=== PATIENT | female | born 1945 | race Caucasian/White ===

== ENCOUNTER 2024-04-18 13:38 | Inpatient (IN) | payer MEDICARE, OTHER ==
[~2024-04-18] VITALS: Ht 149.9 cm; Wt 74.0 kg
[2024-04-18] MEDS: ACCU-CHEK COMFORT CURVE STRIP VI SCH (00:59)
[~2024-04-18 13:38] MED LIST: NITR-87 PO; PHENAZOPYRID PO; SYNTHROID
[2024-04-18] MEDS: cloNIDine HCL 0.1 MG TAB PO ONE (15:35)
--- NOTE | 2024-04-18 15:45 | ED.PDOC ---
History of Present Illness HPI Comments A 78 YEAR OLD FEMALE PRESENTS TO THE ED WITH COMPLAINT OF MEDICATION REFILL AND HIGH BLOOD PRESSURE. PATIENT STATES SHE HAS A HISTORY OF DIABETES AND DEPRESSION AND WOULD LIKE A MEDICATION REFILL FOR HER CELEXA 10MG AND HUMULIN KWIKPEN. PATIENT'S BLOOD PRESSURE WAS ALSO NOTED TO HAVE BEEN HIGH HERE IN THE ED WHEN CHECKED, BUT THE PATIENT NOTES HER BLOOD PRESSURE IS ALWAYS THIS HIGH DESPITE TAKING HER LOSARTAN 100MG EVERYDAY. THE PATIENT ALSO NOTES THAT SHE EXPERIENCE HIS CHEST PAIN EVERY DAY, USUALLY AT NIGHT. PATIENT DENIES RECENT CHANGES, SLURRED SPEECH, ONE-SIDED WEAKNESS, FACIAL DROOP, DYSURIA, FEVER, CHILLS, SHORTNESS OF BREATH, ABDOMINAL PAIN, NAUSEA, VOMITING, HEADACHE, OR OTHER COMPLAINTS. NO OTHER SYMPTOMS OR MODIFYING FACTORS AT THIS TIME. PATIENT IS ALERT, ORIENTED X 4, AND HAS STEADY GAIT. 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 [employer]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[employer]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 [employer]ER History: 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 History Family History Family History: Reviewed,noncontributory to illness Social History Smoker: Non-Smoker Alcohol: Denies ETOH Use Drugs: Denies Drug Use Lives In: Home Constitutional: reports: others (ANXIOUS ); denies: chills, diaphoresis, f atigue, fever, malaise, sweats, weakness EENTM: denies: blurred vision, double vision, ear bleeding, ear discharge, ear drainage, ear pain, ear ringing, eye pain, eye redness, hearing loss, mouth pain, mouth swelling, nasal discharge, nose bleeding, nose congestion, nose pain, photophobia, tearing, throat pain, throat swelling, voice changes, others Respiratory: denies: cough, hemoptysis, orthopnea, SOB at rest, shortness of breath, SOB with excertion, stridor, wheezing, others Cardiovascular: reports: chest pain, others (HIGH BLOOD PRESSURE); denies: dizzy spells, diaphoresis, Dyspnea on exertion, edema, irregular heart beat, left arm pain, lightheadedness, palpitations, PND, syncope Gastrointestinal: denies: abdomen distended, abdominal pain, blood streaked bowels, constipated, diarrhea, dysphagia, difficulty swallowing, hematemesis, melena, nausea, poor appetite, poor fluid intake, rectal bleeding, rectal pain, vomiting, others Genitourinary: reports: others (DIFFICULTY URINATING); denies: abnormal vagina bleeding, burning, dyspareunia, dysuria, flank pain, frequency, hematuria, incontinence, pain, , vagina discharge, urgency Neurological: denies: dizziness, fainting, headache, left sided numbness, left sided weakness, numbness, paresthesia, pre-existing deficit, right sided numbness, right sided weakness, seizure, speech problems, tingling, tremors, weakness, others Musculoskeletal: denies: back pain, gout, joint pain, joint swelling, muscle pain, muscle stiffness, neck pain, others Integumetry: denies: bruises, change in color, change in hair/nails, dryness, laceration, lesions, lumps, rash, wounds, others Allergic/Immunocompromised: denies: Difficulty Healing, Frequent Infections, Hives, Itching, others Hematologic/Lymphatic: denies: anemia, blood clots, easy bleeding, easy bruising, swollen glands, others Endocrine: denies: excessive hunger, excessive sweating, excessive thirst, excessive urination, flushing, intolerance to cold, intolerance to heat, unexplained weight gain, unexplained weight loss, others Psychiatric: denies: anxiety, bipolar disorder, depression, hopeless, panic disorder, schizophrenia, sleepless, suicidal, others All Other Systems: Reviewed and Negative Physical Exam General Appearance: Mild Distress, Other (ANXIOUS ) HEENT: Normal ENT Inspection, PERRL/EOMI, Pharynx Normal, TMs Normal Neck: Full Range of Motion, Non-Tender, Normal, Normal Inspection Respiratory: Chest Non-Tender, Lungs Clear, No Accessory Muscle Use, No Respiratory Distress, Normal Breath Sounds Cardiovascular: No Edema, No JVD, No Murmur, No Gallop, Normal Peripheral Pulses, Regular Rate/Rhythm Breast Exam: Deferred Gastrointestinal: No Organomegaly, Non Tender, No Pulsatile Mass, Normal Bowel Sounds, Soft Genitalia: Deferred Pelvic: Deferred Rectal: Deferred Extremities: No calf tenderness, Normal capillary refill, Normal inspection, Normal range of motion, Non-tender, No pedal edema Musculoskeletal : Apperance: Normal Neurologic: Alert, photograph inspector II-XII nml as Tested, No Motor Deficits, Normal Affect, Normal Mood, No Sensory Deficits Cerebellar Function: Normal Reflexes: Normal Skin: Dry, Normal Color, Warm Peripheral Pulses: 2+ carotid (R), 2+ carotid (L) Lymphatic: No Adenopathy Was a procedure done? Was a procedure done?: No EKG EKG : Pulse Rate (adult): 43 [place]: Normal Block: None Hypertrophy: None ST: Normal Comments BRADYCARDIA Differential Dx Considerations may include: MEDICATION REFILL, HYPERTENSION, UNCONTROLLED HYPERTENSION, HYPERTENSIVE URGENCY, UTI, ELECTROLYTE IMBALANCE, HYPOTHYROIDISM, NONCARDIAC CHEST PAIN, MN, BRADYCARDIA, ANXIETY REACTION X-Ray, Labs, Meds, VS Vital Signs Date Time Temp Pulse Resp B/P (MAP) Pulse Ox O2 Delivery O2 Flow Rate FiO2 04/18/24 17:39 43 04/18/24 17:24 43 04/18/24 16:37 131/54 04/18/24 16:37 131/54 (79) 04/18/24 15:35 210/71 04/18/24 15:20 98.2 65 18 186/65 (105) 96 98.2 04/18/24 15:20 65 18 96 Room Air 04/18/24 14:20 98.2 65 18 186/65 (105) 96 Lab Test 04/18/24 17:13 04/18/24 15:24 Range/Units Troponin I High Sensitivity 5 5 </=34 ng/L White Blood Count 7.9 4.4-10.8 10^3/uL Red Blood Count 4.53 4.0-5.20 10^6/uL Hemoglobin 13.5 12.2-16.2 g/dL Hematocrit 40.2 36.0-46.0 % Mean Corpuscular Volume 88.7 80.0-100.0 fL Mean Corpuscular Hemoglobin 29.8 28.0-32.0 pg Mean Corpuscular Hemoglobin Concent 33.6 32.0-36.0 g/dL Red Cell Distribution Width 13.6 11.8-14.3 % Platelet Count 200 140-450 10^3/uL Mean Platelet Volume 10.0 6.9-10.8 fL Neutrophils (%) (Auto) 62.4 37.0-80.0 % Lymphocytes (%) (Auto) 28.1 10.0-50.0 % Monocytes (%) (Auto) 6.4 0.0-12.0 % Eosinophils (%) (Auto) 2.1 0.0-7.0 % Basophils (%) (Auto) 1.0 0.0-2.0 % Neutrophils # (Auto) 5.0 1.6-8.6 10 ^3/uL Lymphocytes # (Auto) 2.2 0.4-5.4 10 ^3/uL Monocytes # (Auto) 0.5 0-1.3 10 ^3/uL Eosinophils # (Auto) 0.2 0-0.8 10 ^3/uL Basophils # (Auto) 0.1 0-0.2 10 ^3/uL Nucleated Red Blood Cells 0.2 % Urine Color Yellow Yellow Urine Clarity Turbid H Clear Urine pH 5.0 5.0-9.0 Urine Specific [place] 1.020 1.001-1.035 Urine Protein 1+ H Negative Urine Ketones Negative Negative Urine Blood 1+ H Negative /uL Urine Nitrite Negative Negative Urine Bilirubin Negative Negative Urine Urobilinogen Normal Negative mg/dL Urine Leukocyte Esterase Trace Negative /uL Urine RBC 9 0 - 4 /hpf Urine Microscopic WBC 40 H 0-5 /HPF Urine Squamous Epithelial Cells Few <5 /hpf Urine Bacteria Mod H None Seen /hpf Urine Hyaline Casts Few 0 - 2 /lpf Urine Mucus Few None Seen Urine Glucose 4+ H Normal mg/dL Sodium Level 136 136-145 mmol/L Potassium Level 4.1 3.5-5.1 mmol/L Chloride Level 106 98-107 mmol/L Carbon Dioxide Level 22 20-31 mmol/L Anion Gap 8 5-15 Blood Urea Nitrogen 16 9-23 mg/dL Creatinine 1.09 H 0.550-1.02 mg/dL Glomerular Filtration Rate Calc 52 >90 mL/min BUN/Creatinine Ratio 14.7 10.0-20.0 Serum Glucose 292 H 74-106 mg/dL Calcium Level 10.0 8.7-10.4 mg/dL Thyroid Stimulating Hormone (TSH) 5.93 H 0.55-4.78 uIU/mL Current Medications Medications (Trade) Dose Ordered Sig/Kimberly Route Start Time Stop Time Status Last Admin Clonidine HCl (Catapres Tablet) 0.2 mg ONCE ONCE PO 04/18/24 15:30 04/18/24 15:31 DC 04/18/24 15:35 Aspirin 162 mg ONCE ONCE PO 04/18/24 17:15 04/18/24 17:16 DC 04/18/24 17:41 Sodium Chloride 1,000 ml @ 150 mls/hr Q6H40M ONCE IV 04/18/24 17:15 04/18/24 23:54 04/18/24 17:39 X-Ray, Labs, Meds, VS Comment EXTERNAL MEDICAL RECORDS REVIEWED: [NONE] INDEPENDENT HISTORIANS: [NONE] SOCIAL DETERMINANTS OF HEALTH: [NONE] LABS ORDERED: CBC, BMP, TSH, TROPONIN X2, UA REVIEWED AND INTERPRETED RESULTS: UGLU 4+, GLUCOSE 292, TSH 5.93, LEUKO TRACE, WBC 40, BACT MODERATE IMAGING ORDERED: XR CHEST TREATMENTS ORDERED: CLONIDINE 0.2 MG P.O. NS 1 L IV, ASPIRIN 162 MG P.O. PA MARIE DECLINED PAIN MEDICINE AT THIS TIME. ALSO, PT DECLINED CT-HEAD TEST AND STATES SHE HAD CT-HEAD LAST MONTH IN [facility]. . PATIENT REPORTED FEELING CHEST PAIN HERE IN THE ED WHEN HER CAME TO VISIT HER. PROCEDURES PERFORMED: NONE CRITICAL CARE TIME: YES I HAVE DISCUSSED THE PATIENT WITH THE ATTENDING PHYSICIAN AND HE AGREES WITH THE PATIENT'S PLAN OF CARE. UPON MY PHYSICAL EXAMINATION, THE PATIENT WAS WELL IN APPEARANCE, AND DID NOT HAVE ANY SIGNS OF RESPIRATORY DISTRESS AT THIS TIME. MY DIFFERENTIAL DIAGNOSIS INCLUDES, NONCARDIAC CHEST PAIN, MN, ANXIETY REACTION, HYPERVENTILATION SYNDROM E, HYPOTHYROIDISM, DEHYDRATION, ELECTROLYTE IMBALANCE, BRADYCARDIA, UNCONTROLLED HYPERTENSION, HYPERTENSIVE URGENCY, ACCELERATED HYPERTENSION, UTI, ACUTE CYSTITIS. PATIENT REPORTED FEELING CHEST PAIN HERE IN THE ED WHEN HER CAME TO VISIT HER. DUE TO THE PATIENT'S EKG CONSISTENTLY SHOWING A BRADYCARDIA, THE PATIENT'S CONSISTENT CHEST PAIN, AND THE PATIENT HAVING UNCONTROLLED HYPERTENSION I HAVE DETERMINED THE PATIENT SHOULD BE ADMITTED FOR FURTHER TREATMENT AND EVALUATION. THE ON-CALL ADMITTING PHYSICIAN WILL BE CONTACTED FOR ADMISSION OF THIS PATIENT. Images Reviewed?: Images reviewed and evaluated by me Time of 1ST Reevaluation: 18:00 Reevaluation 1ST: Unchanged Patient Education/Counseling: Diagnosis, Treatment Family Education/Counseling: Diagnosis, Treatment Departure 1 Departure Time of Disposition: 18:04 Impression: Primary Impression: Accelerated hypertension Additional Impressions: Acute chest pain Bradycardia Hypothyroidism Qualified Codes: E03.9 - Hypothyroidism, unspecified Uncontrolled diabetes mellitus Qualified Codes: E11.65 - Type 2 diabetes mellitus with hyperglycemia Disposition: 09 ADMITTED INPATIENT Admit to: Tele Condition: Serious Critical Care Note Critical Care Time?: Yes (35 min-critical care time only) Critical care comment: Critcal care was time spent personally by me on the following activities: Obtaining history of the patient. Development of treatment plan with patient. Evaluation of patient's response to treatment. Examination of the patient x 3. Interpretation of cardiac output measurements. Ordering interventions. Ordering and review of laboratory and radiology studies. Re-evaluation of patient's conditions 3 times. Review of old charts. Documentation of the patient had a high probability of imminent, life- threatening deterioration. Critical care time excludes time spent performing billable procedures. Stability Stability form required: Yes Unstable for transfer: Requires medication, ED Physician Assesment, Possible rapid decline Heart Score Heart Score: Heart Score Response (Comments) Value History Moderate Suspicious 1 EKG Normal 0 Age >65 2 Risk Factors >3 or Hx ASHD 2 Troponin Normal limit 0 Total 5 I personally scribed for STEFAN PALOMARES ([email or web address]) on 04/18/24 at 15:45. Elect ronically submitted by Maynor Mckeon ([employer]). I personally scribed for STEFAN PALOMARES ([email or web address]) on 04/18/24 at 16:45. Electro nically submitted by Maynor Mckeon ([employer]). I personally scribed for STEFAN PALOMARES ([email or web address]) on 04/18/24 at 17:39. Electroni jasmyn submitted by Maynor Mckeon ([employer]). I personally scribed for STEAFN PALOMARES ([email or web address]) on 04/18/24 at 18:06. Electronically submitted by Maynor Mckeon ([employer]). STEFAN PALOMARES Apr 18, 2024 15:45
[2024-04-18 15:58] LABS: Basophils # (auto) 0.1 10 ^3/uL (0-0.2); Eosinophils # (auto) 0.2 10 ^3/uL (0-0.8); Eosinophils % (auto) 2.1 % (0.0-7.0); Hematocrit 40.2 % (36.0-46.0); Hemoglobin 13.5 g/dL (12.2-16.2); Lymphocytes # (auto) 2.2 10 ^3/uL (0.4-5.4); Lymphocytes % (auto) 28.1 % (10.0-50.0); Mean Corpuscular Hemoglobin 29.8 pg (28.0-32.0); Mean Corpuscular Hgb Conc. 33.6 g/dL (32.0-36.0); Mean Corpuscular Volume 88.7 fL (80.0-100.0); Monocytes # (auto) 0.5 10 ^3/uL (0-1.3); Monocytes % (auto) 6.4 % (0.0-12.0); Neutrophils % (auto) 62.4 % (37.0-80.0); Nucleated Red Blood Cells % 0.2 %; Platelet Count (auto) 200 10^3/uL (140-450); Red Blood Cells 4.53 10^6/uL (4.0-5.20); Red Cell Distribution Width 13.6 % (11.8-14.3); White Blood Cell 7.9 10^3/uL (4.4-10.8)
[2024-04-18 16:04] LABS: Chloride 106 mmol/L (98-107); Potassium 4.1 mmol/L (3.5-5.1); Sodium 136 mmol/L (136-145)
[2024-04-18 16:05] LABS: Anion Gap 8 (5-15); Carbon Dioxide 22 mmol/L (20-31)
[2024-04-18 16:07] LABS: Urine Bacteria MOD /hpf (None Seen); Urine Hyaline Cast FEW /lpf (0 - 2); Urine Mucus FEW (None Seen); Urine Squamous Epithelial Cell FEW /hpf (<5); Urine WBC 40 /HPF (0-5)
[2024-04-18 16:10] LABS: BUN/Creatinine Ratio 14.7 (10.0-20.0); Blood Urea Nitrogen 16 mg/dL (9-23)
[2024-04-18 16:13] LABS: Glucose 292 mg/dL (74-106)
[2024-04-18 16:19] LABS: Urine Clarity TURBID (Clear); Urine Color Yellow (Yellow)
[2024-04-18 16:23] LABS: Urine Protein, UAD 1+ (Negative)
[2024-04-18 16:24] LABS: Urine Blood 1+ /uL (Negative); Urine Urobilinogen Normal (Negative)
[2024-04-18] MEDS ORDERED: CLON0.1T PO (16:59)
[2024-04-18] MEDS ORDERED: NITR-87 PO (16:59)
[2024-04-18] MEDS ORDERED: INSU1INJ4 SC (16:59)
[2024-04-18] MEDS: SODIUM CHLORIDE 0.9% 1,000 ML IV ONE ×3 (17:15→19:05)
[2024-04-18] MEDS: ASPirin 81 mg TAB PO ONE (17:41)
--- NOTE | 2024-04-18 18:57 | DVH ---
Procedure: XY CHEST XRAY 1 VIEW 04/18/2024 05:13 PM Indication: CHEST PAIN Comparison: None TECHNIQUE: XY CHEST XRAY 1 VIEW FINDINGS: Medical devices: None. Cardiomediastinal: The heart is normal in size. Pulmonary vasculature is within normal limits. Athero sclerotic calcification of the aortic arch noted. Lungs: No focal pulmonary opacity is seen. The costophrenic angles are clear. No pneumothorax. Bones/soft tissues: No acute abnormality is noted. IMPRESSION: 1. No acute cardiopulmonary disease.
[2024-04-18] MEDS ORDERED: ACETAMINOPHEN 325 MG TAB PO PRN (19:45)
[2024-04-18] MEDS ORDERED: DEXTROSE (50%) 50ML SYRG IV PRN (19:45)
[2024-04-18] MEDS: SODIUM CHLORIDE 0.9% 1,000 ML IV SCH (19:45)
[2024-04-18] MEDS ORDERED: ONDANSETRON HCL 4 MG/2 ML VIAL IV PRN (19:45)
[2024-04-18] MEDS ORDERED: DOCUSATE SOD 100 MG CAP PO PRN (19:45)
[2024-04-18] MEDS: InsuLIN REG 1unit/0.01ml Soln (100units/ml) SC SCH (20:00)
--- NOTE | 2024-04-18 20:34 | DVHHP2 ---
History of Present Illness Reason for Visit: Hypertensive urgency History of Present Illness The patient is a 78-year-old female with past medical history of DM, depression, anxiety, thyroid disease, UTIs, and hypertension who presented to [facility] ED with complaint of elevated blood pressure. Patient reports she ran out of blood pressure medication, will need medication refills. Patient also reports chest pain every day, usually at night. Patient was seen and evaluated in the ED, laboratory data shows WBC 7.9, platelets 200, sodium 136, potassium 4.1, BUN 16, creatinine 1.09, GFR 52, glucose 292, troponin 5, TSH 5.93, blood pressure 210/71 trending down to 128/60, heart rate 46, temperature 98.2 F, O2 saturation 96% on room air. Patient was given clonidine 0.2 mg by mouth x1, given aspirin 162 mg p.o. x1, please see medication orders section in the computer. On my assessment, patient denied chest pain at this moment, no headach e, no dizziness, no slurred speech, no diaphoresis, no nausea, no vomiting, no fever, no chills. Patient was admitted for further evaluation and medical management. Past Medical History Anxiety, Depression, DM, HTN, Thyroid, UTI'S Past Surgical History Bilateral hip surgery Family History Reviewed, noncontributory to the management of this case. Past Social History The patient lives at home, denies smoking, alcohol or illicit drugs abuse. Review of Systems Constitutional: Yes: Weakness; No: Fever, Chills, Sweats, Malaise, Other Eyes: No: Pain, Vision change, Conjunctivae inflammation, Eyelid inflammation, Other, Redness ENT: No: Ear pain, Ear discharge, Nose pain, Nose discharge, Nose congestion, Mouth pain, Mouth swelling, Throat pain, Throat swelling, Other Respiratory: No: Cough, Dry, Shortness of breath, SOB with excertion, Wheezing, Hemoptysis, Pleuritic Pain, Sputum, Wheezing, Other Cardiovascular: Chest Pain; No: Palpitations, Orthopnea, Paroxysmal Noc. Dyspnea, Edema, Lt Headedness, Other Gastrointestinal: No: Nausea, Vomiting, Abdominal Pain, Diarrhea, Constipation, Melena, Hematochezia, Other Genitourinary: No Dysuria, No Frequency, No Incontinence, No Hematuria, No Retention; Other (Urinary hesitancy) Musculoskeletal: No: other, neck pain, shoulder pain, arm pain, back pain, hand pain, leg pain, foot pain Skin: No: Rash, Lesions, Jaundice, Bruising, Other Neurological: No: Weakness, Numbness, Incoordination, Change in speech, Confusion, Seizures, Other Allergies: Coded Allergies: Ciprofloxacin (Verified Allergy, Severe, 11/07/10) Medications Current Medications Medications Dose Ordered Sig/Kimberly Route Start Time Stop Time Status Last Admin Dose Admin Aspirin 81 mg DAILY PO 04/19/24 10:00 Atorvastatin Calcium 10 mg HS PO 04/18/24 22:00 Levothyroxine Sodium 88 mcg QAM@0600 PO 04/19/24 06:00 Losartan Potassium 50 mg DAILY PO 04/19/24 10:00 Hydralazine HCl 10 mg Q6HP PRN IV 04/18/24 19:45 Diagnostic Test (Pha) 1 strip IQ4HR 04/18/24 20:00 Insulin Human Regular IQ4HR SC 04/18/24 20:00 Dextrose 50 ml UD PRN IV 04/18/24 19:45 Sodium Chloride 1,000 ml @ 60 mls/hr [id number] IV 04/18/24 19:45 Acetaminophen/ Hydrocodone Bitart 1 tab Q4HP PRN PO 04/18/24 19:45 Ondansetron HCl 4 mg Q4HP PRN IV 04/18/24 19:45 Docusate Sodium 100 mg BIDPRN PRN PO 04/18/24 19:45 Acetaminophen 650 mg Q6HP PRN PO 04/18/24 19:45 Nitroglycerin 0.4 mg Q5MINP PRN SL 04/18/24 20:45 UNV Morphine Sulfate 2 mg Q30M PRN IV 04/18/24 20:45 UNV Exam Vital Signs Vital Signs Date Time Temp Pulse Resp B/P (MAP) Pulse Ox O2 Delivery O2 Flow Rate FiO2 04/18/24 18:34 46 16 128/60 (82) 98 04/18/24 15:20 98.2 98.2 04/18/24 15:20 Room Air General Appearance: Alert, Oriented X3, Cooperative, No acute distress HEENT: Atraumatic, PERRLA, EOMI, Mucous membr. moist/pink Respiratory: Clear to auscultation, Normal air movement Cardiovascular: Regular rate, Normal S1, Normal S2, No murmurs Abdominal: Normal bowel sounds, Soft, No tenderness, No hepatospenomegaly, No masses Extremities: No clubbing, No cyanosis, No edema, Normal pulses, No tenderness/swelling Skin: No rashes, No breakdown, No significant lesion Neuro: Normal speech, Normal tone, Sensation intact, Cranial nerves 3-12 NL, Reflexes 2+, Other (Generalized weakness) Psych/Mental Status: Mental status NL, Mood NL Labs/Xrays Labs Test 04/18/24 17:13 04/18/24 15:24 Range/Units Troponin I High Sensitivity 5 </=34 ng/L White Blood Count 7.9 4.4-10.8 10^3/uL Red Blood Count 4.53 4.0-5.20 10^6/uL Hemoglobin 13.5 12.2-16.2 g/dL Hematocrit 40.2 36.0-46.0 % Mean Corpuscular Volume 88.7 80.0-100.0 fL Mean Corpuscular Hemoglobin 29.8 28.0-32.0 pg Mean Corpuscular Hemoglobin Concent 33.6 32.0-36.0 g/dL Red Cell Distribution Width 13.6 11.8-14.3 % Platelet Count 200 140-450 10^3/uL Mean Platelet Volume 10.0 6.9-10.8 fL Neutrophils (%) (Auto) 62.4 37.0-80.0 % Lymphocytes (%) (Auto) 28.1 10.0-50.0 % Monocytes (%) (Auto) 6.4 0.0-12.0 % Eosinophils (%) (Auto) 2.1 0.0-7.0 % Basophils (%) (Auto) 1.0 0.0-2.0 % Neutrophils # (Auto) 5.0 1.6-8.6 10 ^3/uL Lymphocytes # (Auto) 2.2 0.4-5.4 10 ^3/uL Monocytes # (Auto) 0.5 0-1.3 10 ^3/uL Eosinophils # (Auto) 0.2 0-0.8 10 ^3/uL Basophils # (Auto) 0.1 0-0.2 10 ^3/uL Nucleated Red Blood Cells 0.2 % Urine Color Yellow Yellow Urine Clarity Turbid H Clear Urine pH 5.0 5.0-9.0 Urine Specific [place] 1.020 1.001-1.035 Urine Protein 1+ H Negative Urine Ketones Negative Negative Urine Blood 1+ H Negative /uL Urine Nitrite Negative Negative Urine Bilirubin Negative Negative Urine Urobilinogen Normal Negative mg/dL Urine Leukocyte Esterase Trace Negative /uL Urine RBC 9 0 - 4 /hpf Urine Microscopic WBC 40 H 0-5 /HPF Urine Squamous Epithelial Cells Few <5 /hpf Urine Bacteria Mod H None Seen /hpf Urine Hyaline Casts Few 0 - 2 /lpf Urine Mucus Few None Seen Urine Glucose 4+ H Normal mg/dL Sodium Level 136 136-145 mmol/L Potassium Level 4.1 3.5-5.1 mmol/L Chloride Level 106 98-107 mmol/L Carbon Dioxide Level 22 20-31 mmol/L Anion Gap 8 5-15 Blood Urea Nitrogen 16 9-23 mg/dL Creatinine 1.09 H 0.550-1.02 mg/dL Glomerular Filtration Rate Calc 52 >90 mL/min BUN/Creatinine Ratio 14.7 10.0-20.0 Serum Glucose 292 H 74-106 mg/dL Calcium Level 10.0 8.7-10.4 mg/dL Thyroid Stimulating Hormone (TSH) 5.93 H 0.55-4.78 uIU/mL PATIENT: BRAEDEN MARIA MACCT: [id number] UNIT: [id number] : 1945 LOC: ER ROOM / BED: / AGE / SEX: 78 / F ADM STATUS: REG ER SERVICE 1710 ORDERING PHYSICIAN: STEFAN PALOMARES PROCEDURE(s): CXR1 - CHEST XRAY 1 VIEW REASON: CHEST PAIN ORDER NUMBER(s): [id number], ACCESSION NUMBER(s): [id number] Procedure: XY CHEST XRAY 1 VIEW 04/18/2024 05:13 PM Indication: CHEST PAIN Comparison: None TECHNIQUE: XY CHEST XRAY 1 VIEW FINDINGS: Medical devices: None. Cardiomediastinal: The heart is normal in size. Pulmonary vasculature is within normal limits. Atherosclerotic calcification of the aortic arch noted. Lungs: No focal pulmonary opacity is seen. The costophrenic angles are clear. No pneumothorax. Bones/soft tissues: No acute abnormality is noted. IMPRESSION: 1. No acute cardiopulmonary disease. Assessment/Plan Assessment/Plan Accelerated hypertension Acute chest pain Bradycardia Hypothyroidism Hypothyroidism, unspecified Uncontrolled diabetes mellitus Type 2 diabetes mellitus with hyperglycemia Plan 1. Admit to telemetry unit 2. Breathing treatment 3. Pain control management 4. Management of fluids and electrolytes 5. Consultation for hospitalist 6. Diagnostic tests chest x-ray 7. DVT prophylaxis-on aspirin 8. Repeat labs CBC, CMP in a.m. 9. Continue with current medical management 10. Treatment plan discussed with patient and RN. Patient verbalized understanding. Plan discussed with: Patient, Other (RN) My Orders Orders - ANA MARIA TOUSSAINT DNP Procedure Category Date Status Time Aspirin Tablet PHA 04/19/24 In Process 10:00 Atorvastatin (Lipitor) PHA 04/18/24 In Process 22:00 Levothyroxine Tablet PHA 04/19/24 In Process (Synthroid Tablet) 06:00 Losartan Tablet PHA 04/19/24 In Process (Cozaar Tablet) 10:00 Hydralazine Injection PHA 04/18/24 In Process (Apresoline Inject 19:45 Consistent DIET 04/19/24 Transmitted Carb(Ccho)Diabetes Breakfast Glucose Blood PHA 04/18/24 In Process (Accu-Chek Comfort 20:00 Insulin R (Human) PHA 04/18/24 In Process (Insulin R) 20:00 Dextrose 50% Syringe PHA 04/18/24 In Process 19:45 Allergies KRISHAN 04/18/24 In Process 19:36 Code Status CODE 04/18/24 Transmitted 19:36 Sodium Chloride 0.9% PHA 04/18/24 In Process 19:45 Oxygen Per Hour RT 04/18/24 Transmitted 19:36 Hydrocodone-Acet PHA 04/18/24 In Process 5/325mg Tab ([place] 19:45 Ondansetron Hcl PHA 04/18/24 In Process (Zofran) 19:45 Docusate Sodium PHA 04/18/24 In Process Capsule (Colace 19:45 Complete Blood Count LAB 04/19/24 Verified 04:00 Comprehensive LAB 04/19/24 Verified Metabolic Panel 04:00 Condition: Serious KRISHAN 04/18/24 In Process 19:36 Acetaminophen Tablet PHA 04/18/24 In Process (Tylenol Tablet) 19:45 Bedrest With Bathroom KRISHAN 04/18/24 In Process Privileg 19:36 Sequential KRISHAN 04/18/24 In Process Compression Device Admit ADMIT 04/18/24 Transmitted 20:32 Nitroglycerin PHA 04/18/24 Transmitted Sublingual (Ntrostat 20:45 Morphine Sulfate [facility] 04/18/24 Transmitted Injection 20:45 Notify Md Of Changes [facility] 04/18/24 Transmitted From Base 20:32 Curator Of Education For [facility] 04/18/24 Transmitted 24 Hours 20:32 Emergency Dysrhythmia [facility] 04/18/24 Transmitted Protocol 20:32 Rhythm Strips Once [facility] 04/18/24 Transmitted Every Shift 20:32 Oxygen By Nasal 04/18/24 Transmitted Cannula 20:32 Problem List: (1) Accelerated hypertension (2) Acute chest pain (3) Bradycardia (4) Hypothyroidism, unspecified (5) Uncontrolled diabetes mellitus (6) Hypothyroidism (7) Type 2 diabetes mellitus with hyperglycemia Date of Service: Apr 18, 2024 Billing Provider: ANA MARIA TOUSSAINT DNP Common Visit Codes: 47515-[id number] INP/OBS CARE (HIGH) ANA MARIA TOUSSAINT DNP Apr 18, 2024 20:34
[2024-04-18] MEDS ORDERED: MORPHINE SULFATE INJ 2 MG/ml SYRG IV PRN (20:45)
[2024-04-18] MEDS ORDERED: NITROGLYCERIN 0.4 MG SL TAB SL PRN (20:45)
[2024-04-18] MEDS: ATORVASTATIN 20 MG TAB PO SCH (22:00)
[2024-04-19] VITALS (8 sets, daily range): BP systolic 142–205; BP diastolic 55–70; PULSE 43–69; RESP 16–19; TEMP 97.6–98.8; O2SAT 93–100
[2024-04-19] MEDS ORDERED: LOSA-535 PO (00:12)
[2024-04-19] MEDS ORDERED: CITA10TA8 PO (00:12)
[2024-04-19] MEDS ORDERED: MECL12.586 PO (00:12)
[2024-04-19] MEDS ORDERED: LEVO-177 PO (00:12)
[2024-04-19] MEDS: hydrALAZINE HCL 20 MG/ML VL IV PRN (03:00)
[2024-04-19] MEDS: LEVOTHYROXINE SODIUM 88 MCG TAB PO SCH (04:58)
[2024-04-19 07:48] LABS: Basophils # (auto) 0.1 10 ^3/uL (0-0.2); Basophils % (auto) 0.9 % (0.0-2.0); Eosinophils # (auto) 0.2 10 ^3/uL (0-0.8); Eosinophils % (auto) 2.2 % (0.0-7.0); Hematocrit 37.1 % (36.0-46.0); Hemoglobin 12.4 g/dL (12.2-16.2); Lymphocytes # (auto) 2.5 10 ^3/uL (0.4-5.4); Lymphocytes % (auto) 31.5 % (10.0-50.0); Mean Corpuscular Hemoglobin 29.9 pg (28.0-32.0); Mean Corpuscular Hgb Conc. 33.4 g/dL (32.0-36.0); Mean Corpuscular Volume 89.7 fL (80.0-100.0); Monocytes # (auto) 0.5 10 ^3/uL (0-1.3); Monocytes % (auto) 6.5 % (0.0-12.0); Neutrophils # (auto) 4.7 10 ^3/uL (1.6-8.6); Neutrophils % (auto) 58.9 % (37.0-80.0); Platelet Count (auto) 166 10^3/uL (140-450); Red Blood Cells 4.14 10^6/uL (4.0-5.20)
[2024-04-19 08:09] LABS: Alanine Aminotransferase 10 U/L (7-40); Albumin 3.8 g/dL (3.2-4.8); Alkaline Phosphatase 94 U/L (46-116); Anion Gap 9 (5-15); BUN/Creatinine Ratio 17.1 (10.0-20.0); Blood Urea Nitrogen 14 mg/dL (9-23); Calcium 9.4 mg/dL (8.7-10.4); Carbon Dioxide 22 mmol/L (20-31); Sodium 140 mmol/L (136-145)
[2024-04-19 08:10] LABS: Bilirubin, Total 0.5 mg/dL (0.2-1.0); Total Protein 6.3 g/dL (5.7-8.2)
[2024-04-19 08:22] LABS: Chloride 109 mmol/L (98-107); Potassium 3.5 mmol/L (3.5-5.1)
[2024-04-19 08:23] LABS: Aspartate Aminotransferase 12 U/L (13-40); Glucose 135 mg/dL (74-106)
[2024-04-19] MEDS: LOSARTAN POTASSIUM 50 MG TAB PO SCH (09:28)
[2024-04-19] MEDS: ASPirin 81 mg TAB PO SCH (09:28)
[2024-04-19 09:46] LABS: Magnesium 1.6 mg/dL (1.6-2.6)
[2024-04-19] MEDS ORDERED: hydrALAZINE HCL 10 MG TAB PO PRN (11:00)
[2024-04-19] MEDS: cefTRIAXone 1GM/50ML D5W 50 ML IV SCH (12:11)
[2024-04-19] MEDS: CALCIUM CARB 500 MG CHEW TAB PO ONE (12:12)
[2024-04-19] MEDS: PANTOPRAZOLE 40 MG/10 ML VIAL INJ IV ONE (12:14)
[2024-04-19] MEDS ORDERED: hydrALAZINE HCL 25 MG TAB PO PRN (12:15)
[2024-04-19] MEDS: LOSARTAN POTASSIUM 50 MG TAB PO ONE (12:54)
[2024-04-19] MEDS: NIFEdipine ER 30 MG TAB PO ONE ×2 (12:54→18:07)
--- NOTE | 2024-04-19 13:05 | DVHPN2 ---
Subjective medication refill , high blood pressure. also been having chest pain at night upper gastric like a burning sensation Reviewed: Care Plan, H&P, Labs, Medications, Previous Orders, Radiology Changes from previous H/P or p: No Changes Neurological: Other (dizziness ) Eyes: No Pain, No Vision change, No Conjunctivae inflammation, No Eyelid inflammation, No Other, No Redness ENT: No Ear pain, No Ear discharge, No Nose pain, No Nose discharge, No Nose congestion, No Mouth pain, No Mouth swelling, No Throat pain, No Throat swelling, No Other Cardiovascular: Chest Pain; No Palpitations, No Orthopnea, No Paroxysmal Noc. Dyspnea, No Edema, No Lt Headedness, No Other Respiratory: No Cough, No Dry, No Shortness of breath, No SOB with excertion, No Wheezing, No Hemoptysis, No Pleuritic Pain, No Sputum, No Other Gastrointestinal: No Nausea, No Vomiting, No Abdominal Pain, No Diarrhea, No Constipation, No Melena, No Hematochezia; Other (flank pain ) Genitourinary: No Dysuria, No Frequency; Incontinence; No Hematuria, No Retention; Other (Urinary hesitancy) Musculoskeletal: No other, No neck pain, No shoulder pain, No arm pain, No back pain, No hand pain, No leg pain, No foot pain Skin: No Rash, No Lesions, No Jaundice, No Bruising, No Other Objective Vitals Vital Signs Date Time Temp Pulse Resp B/P (MAP) Pulse Ox O2 Delivery O2 Flow Rate FiO2 04/19/24 10:25 201/69 04/19/24 08:33 98.8 59 18 97 98.8 04/18/24 23:31 Room Air* 0 21 Intake/Output Intake and Output 04/19/24 07:00 Intake Total 0 ml Balance 0 ml Intake Oral 0 ml # Voids 2 Exam high blood pressure also having dizziness and chest pain at night General Appearance: Alert, Oriented X3, Cooperative, No acute distress HEENT: PERRLA Lungs: Clear to auscultation Cardiovascular: Regular rate, Normal S1, Normal S2, No murmurs Abdomen: Normal bowel sounds Genitourinary: No Apparent Abnormalities Extremities: No clubbing, No cyanosis, No edema, Normal pulses, No tenderness/swelling Neuro: Normal gait, Normal speech, Strength at 5/5 X4 ext, Normal tone, S ensation intact, Cranial nerves 3-12 NL Skin: Dry, Intact Psych/Mental Status: Mental status NL Medications Current Medications Medications Dose Ordered Sig/Kimberly Route Start Time Stop Time Status Last Admin Dose Admin Aspirin 81 mg DAILY PO 04/19/24 10:00 04/19/24 09:28 81 MG Atorvastatin Calcium 10 mg HS PO 04/18/24 22:00 Levothyroxine Sodium 88 mcg QAM@0600 PO 04/19/24 06:00 04/19/24 04:58 88 MCG Diagnostic Test (Pha) 1 strip IQ4HR 04/18/24 20:00 04/19/24 12:17 1 STRIP Insulin Human Regular IQ4HR SC 04/18/24 20:00 04/19/24 12:16 3 UNITS Dextrose 50 ml UD PRN IV 04/18/24 19:45 Sodium Chloride 1,000 ml @ 60 mls/hr [id number] IV 04/18/24 19:45 04/18/24 19:45 60 MLS/HR Acetaminophen/ Hydrocodone Bitart 1 tab Q4HP PRN PO 04/18/24 19:45 Ondansetron HCl 4 mg Q4HP PRN IV 04/18/24 19:45 Docusate Sodium 100 mg BIDPRN PRN PO 04/18/24 19:45 Acetaminophen 650 mg Q6HP PRN PO 04/18/24 19:45 Nitroglycerin 0.4 mg Q5MINP PRN SL 04/18/24 20:45 Morphine Sulfate 2 mg Q30M PRN IV 04/18/24 20:45 Losartan Potassium 100 mg DAILY PO 04/20/24 10:00 Pantoprazole Sodium 40 mg DAILY IV 04/20/24 10:00 Calcium Carbonate 500 mg BID PO 04/19/24 22:00 Hydralazine HCl 10 mg Q6HP PRN PO 04/19/24 11:00 Ceftriaxone Sodium 50 ml @ 100 mls/hr DAILY@09 IV 04/19/24 11:00 04/19/24 12:11 100 MLS/HR Hydralazine HCl 50 mg Q8HR PRN PO 04/19/24 12:15 UNV Nifedipine 30 mg DAILY PO 04/20/24 10:00 UNV Laboratory Results Laboratory Tests 04/19/24 06:46 Chemistry Test 04/18/24 15:24 04/19/24 06:46 Calcium Level 10.0 mg/dL (8.7-10.4) 9.4 mg/dL (8.7-10.4) Albumin 3.8 g/dL (3.2-4.8) Magnesium Level 1.6 mg/dL (1.6-2.6) Phosphorus Level 3.0 mg/dL (2.4-5.1) Total Protein 6.3 g/dL (5.7-8.2) Lipid panel Test 04/19/24 06:46 Cholesterol Level 202 mg/dL (< 200) H HDL Cholesterol 42 mg/dL (40-59) Triglycerides Level 175 mg/dL (< 150) H LFT Test 04/19/24 06:46 Alanine Aminotransferase (ALT) 10 U/L (7-40) Alkaline Phosphatase 94 U/L (46-116) Aspartate Amino Transferase (AST) 12 U/L (13-40) L Total Bilirubin 0.5 mg/dL (0.2-1.0) HgA1c, TSH Test 04/18/24 15:24 04/19/24 06:46 Thyroid Stimulating Hormone (TSH) 5.93 uIU/mL (0.55-4.78) H Hemoglobin A1c 10.7 % A1C (<5.7) H Urinalysis Test 04/18/24 15:24 Urine Color Yellow (Yellow) Urine Clarity Turbid (Clear) H Urine pH 5.0 (5.0-9.0) Urine Specific [place] 1.020 (1.001-1.035) Urine Protein 1+ (Negative) H Urine Ketones Negative (Negative) Urine Blood 1+ /uL (Negative) H Urine Nitrite Negative (Negative) Urine Bilirubin Negative (Negative) Urine Urobilinogen Normal mg/dL (Negative) Urine Leukocyte Esterase Trace /uL (Negative) Urine RBC 9 /hpf (0 - 4) Urine Microscopic WBC 40 /HPF (0-5) H Urine Squamous Epithelial Cells Few /hpf (<5) Urine Bacteria Mod /hpf (None Seen) H Urine Hyaline Casts Few /lpf (0 - 2) Urine Mucus Few (None Seen) Urine Glucose 4+ mg/dL (Normal) H Labs and/or images reviewed: Labs reviewed by me, Image(s) reviewed by me Assessment/Plan Assessment/Plan The patient is a 78-year-old female with past medical history of DM, depression, anxiety, thyroid disease, recurrent UTIs, and hypertension, acid reflux , who presented to [facility] ED with complaint of elevated blood pressure. Patient reports switched insurance recently was a previous [facility] patient she ran out of blood pressure medication and wasn't able to get a new appointment with a new PCP till next month , and need medication refill . Patient also reports chest pain every night upper gastric pain with a burning sensation, pain is non radiating , patient is also having occasional dizziness with confusion with hypertensive episodes. patient denies any shortness of breath , palpitations, fever ,cough , nausea, vomiting. surgical - bladder sling revered/ mesh further discussion with patient and patient was previous [place] patient was seen multiple times for chronic issue of hypertension and was seen by Karen Heredia for same issue. patient has had persistent HTN even with medication changes over the years and never been in control. also was refereed to have a stress test done but was never completed due to schedule issues and insurance. spoke with nursing upon admission patient B/P systolic was between 180-200. during admission patient started having episodes of bradycardia HR 40-50. assessment: -hypertension crisis systolic B/P greater than 200 - symptomatic Bradycardia -chest pain at night (negative troponin level) -dizziness/confusion -hypothyroidism -urinary tract infection -hyperlipidemia -diabetes mellitus uncontrolled with an A1C 10.7 -possible GERD? heart burn ? plan: daily CBC,CMP -pending echo -Cardiology consult pending -a1c -Increased losartan to 100mg daily -switched Hydralazine 50 mg PO - added Protonix and calcium carbonate -antibiotic Rocephin for recurrent UTI Plan discussed with: Patient, Other (nurse) Date of Service: Apr 19, 2024 Billing Provider: TOD BARTON HIDE PASTER Common Visit Codes: [id number] INP/OBS CARE(MOD) PENNIE YUNG STUDENT HIDE PASTER Apr 19, 2024 13:05
--- NOTE | 2024-04-19 13:19 | DVH ---
CLINICAL INFORMATION: 78 years old, Female; altered mental status. TECHNIQUE: Axial imaging was obtained through the brain without contrast. Coronal and sagittal refor matted images were obtained, reviewed, and stored. Images were reviewed in brain and bone windows. A ll CT scans at this medical facility are performed using dose modulation techniques as appropriate to a performed exam including the following: Automated exposure control was utilized; adjustment of the MA and/or KV according to patient size; and use of iterative reconstruction technique. CTDIvol = 60.09 mGy DLP = 1182.8 mGy-cm COMPARISON: None FINDINGS: There is no acute intracranial hemorrhage or extraaxial fluid collection. No mass effect o r midline shift. Scattered areas of hypoattenuation are seen in the periventricular and subcortical w radha matter, which are nonspecific but most likely sequelae of small vessel ischemic disease. The abbi tricles and sulci are within normal limits in size for age. Basal cisterns are patent. The calvar ium is unremarkable. Mild mucosal thickening of the paranasal sinuses. IMPRESSION: 1. No CT evidence of acute intracranial abnormality. 2. Nonacute findings as described above.
[2024-04-19] MEDS: HYDROcodone-ACET 5/325MG TAB PO PRN (13:37)
--- NOTE | 2024-04-19 13:42 | DVHINCON2 ---
Date Seen: Apr 19, 2024 Referring Physician ESVIN Gerardo Reason for Consultation Sustained bradycardia and hypertension History of Present Illness This is a 78-year-old female patient who presents to the emergency room with chief complaint of headache and elevated blood pressure. At the time of assessment patient was having periods of confusion. The patient's who is at bedside was able to further assist with history. According to the patient's , the patient ran out of her antihypertensive medication and was unable to get a refill. They decided to come to the emergency room and upon emergency room arrival the patient was noted to have blood pressures reaching as high as 210/71. Cardiology has now been consulted for elevated blood pressure as well as bradycardia. No twelve lead electrocardiogram done in the emergency room at time of arrival. A twelve lead electrocardiogram was ordered at time of assessment and reveals normal sinus rhythm. After reviewing the patient's monitoring and evaluation advisor, the patient noted to have nonsustained episodes of bradycardia. Patient back in normal sinus rhythm at time of assessment. Initial serial troponin levels have been negative. The patient denies any chest pain, shortness of breath, or other cardiac symptoms. Significant past medical history includes hypertension, dyslipidemia, thyroid disease, type 2 diabetes mellitus, urinary tract infection, and obesity. Past Medical History Past medical history reviewed. No other significant than mentioned above. Past Surgical History Bilateral hip surgery Family History: Diabetes mellitus G8 MOTHER, Family History Family history reviewed. Social History Denies the use of tobacco, alcohol or illicit drugs. Allergies: Coded Allergies: Ciprofloxacin (Verified Allergy, Severe, 11/07/10) Home Meds Reported Medications Meclizine Hcl (Meclizine Hcl) 12.5 Mg Tab, 12.5 MG PO PRN for NAUSEA / VOMITING, TAB 04/19/24 Levothyroxine Sodium (Levothyroxine Sodium) 88 Mcg Tab, 1 TAB PO QAM 04/19/24 Losartan Potassium (Losartan Potassium) 100 Mg Tab, 100 MG PO DAILY, TAB 04/19/24 Citalopram Hydrobromide (Celexa) 10 Mg Tab, 10 MG PO DAILY, TAB 04/19/24 Home Meds Home medications reviewed. Current Medications Current Medications Medications (Trade) Dose Ordered Sig/Kimberly Route PRN Reason Start Time Stop Time Status Last Admin Aspirin 81 mg DAILY PO 04/19/24 10:00 04/19/24 09:28 Atorvastatin Calcium (Lipitor) 10 mg HS PO 04/18/24 22:00 Levothyroxine Sodium (Synthroid Tablet) 88 mcg QAM@0600 PO 04/19/24 06:00 04/19/24 04:58 Losartan Potassium (Cozaar Tablet) 50 mg DAILY PO 04/19/24 10:00 04/19/24 11:19 DC 04/19/24 09:28 Hydralazine HCl (Apresoline Injection) 10 mg Q6HP PRN IV SBP>150 04/18/24 19:45 04/19/24 11:19 DC 04/19/24 10:25 Diagnostic Test (Pha) (Accu-Chek Comfort Curve T) 1 strip IQ4HR 04/18/24 20:00 04/19/24 12:17 Insulin Human Regular (InsuLIN R) IQ4HR SC 04/18/24 20:00 04/19/24 12:16 Dextrose 50 ml UD PRN IV Blood Sugar LESS THAN 60 04/18/24 19:45 Sodium Chloride 1,000 ml @ 60 mls/hr [id number] IV 04/18/24 19:45 04/19/24 12:54 Acetaminophen/ Hydrocodone Bitart ([place] 5/325MG Tab) 1 tab Q4HP PRN PO MODERATE PAIN (4-6 PAIN SCALE) 04/18/24 19:45 04/19/24 13:37 Ondansetron HCl (Zofran) 4 mg Q4HP PRN IV NAUSEA / VOMITING 04/18/24 19:45 Docusate Sodium (Colace Capsule) 100 mg BIDPRN PRN PO FOR CONSTIPATION 04/18/24 19:45 Acetaminophen (Tylenol Tablet) 650 mg Q6HP PRN PO PAIN SCALE 1-3 OR TEMP>100.4 04/18/24 19:45 Nitroglycerin (Ntrostat Sublingual) 0.4 mg Q5MINP PRN SL FOR CHEST PAIN 04/18/24 20:45 Morphine Sulfate 2 mg Q30M PRN IV FOR CHEST PAIN 04/18/24 20:45 Losartan Potassium (Cozaar Tablet) 100 mg DAILY PO 04/20/24 10:00 Pantoprazole Sodium (Protonix) 40 mg DAILY IV 04/20/24 10:00 Calcium Carbonate (Tums) 500 mg BID PO 04/19/24 22:00 Hydralazine HCl (Apresoline Tablet) 10 mg Q6HP PRN PO SBP>150 04/19/24 11:00 04/19/24 12:38 DC Ceftriaxone Sodium 50 ml @ 100 mls/hr DAILY@09 IV 04/19/24 11:00 04/19/24 12:11 Hydralazine HCl (Apresoline Tablet) 50 mg Q8HR PRN PO SBP>150 04/19/24 12:15 Nifedipine (Procardia Xl (Time-Release)) 30 mg DAILY PO 04/20/24 10:00 Review of Systems Constitutional: No symptom reported Ears, Nose, & Throat: No symptom reported Eyes: No symptom reported Neurological: Headache Pulmonary/Respiratory: No symptoms reported Cardiovascular: No symptom reported Gastrointestinal: No symptom reported Genitourinary: No symptom reported Musculoskeletal: No symptom reported Skin: No symptom reported Psychiatric: No symptom reported Endocrine: No symptom reported Hematologic/Lymphatic: No symptom reported Vital Signs Vital Signs Date Time Temp Pulse Resp B/P (MAP) Pulse Ox O2 Delivery O2 Flow Rate FiO2 04/19/24 12:54 208/62 04/19/24 08:33 98.8 59 18 97 98.8 04/18/24 23:31 Room Air* 0 21 Physical Exam General Appearance: Cooperative. Obese Pulmonary/Respiratory: Clear, bilateral breaths sounds. Cardiovascular/Chest: Regular rate and rhythm. Peripheral Pulses: 2+ Radial (R). 2+ Radial (L). 2+ Pedal (R). 2+ Pedal (L) Abdominal Exam: Normal bowel sounds. Ankle Exam: Negative ankle edema Lower extremities: Negative lower extremity edema Neuro/Mental Status: A/OX3, periods of confusion Thoughts/Psych: Appropriate mood and Appearance: No acute distress. Skin Exam: Normal inspection. Normal color. Warm and dry. Labs/Diagnostic Data Labs Test 04/19/24 11:31 04/19/24 06:46 04/18/24 20:28 04/18/24 15:24 Range/Units POC Glucose 196 H 70-106 mg/dl White Blood Count 8.0 4.4-10.8 10^3/uL Red Blood Count 4.14 4.0-5.20 10^6/uL Hemoglobin 12.4 12.2-16.2 g/dL Hematocrit 37.1 36.0-46.0 % Mean Corpuscular Volume 89.7 80.0-100.0 fL Mean Corpuscular Hemoglobin 29.9 28.0-32.0 pg Mean Corpuscular Hemoglobin Concent 33.4 32.0-36.0 g/dL Red Cell Distribution Width 13.0 11.8-14.3 % Platelet Count 166 140-450 10^3/uL Mean Platelet Volume 9.7 6.9-10.8 fL Neutrophils (%) (Auto) 58.9 37.0-80.0 % Lymphocytes (%) (Auto) 31.5 10.0-50.0 % Monocytes (%) (Auto) 6.5 0.0-12.0 % Eosinophils (%) (Auto) 2.2 0.0-7.0 % Basophils (%) (Auto) 0.9 0.0-2.0 % Neutrophils # (Auto) 4.7 1.6-8.6 10 ^3/uL Lymphocytes # (Auto) 2.5 0.4-5.4 10 ^3/uL Monocytes # (Auto) 0.5 0-1.3 10 ^3/uL Eosinophils # (Auto) 0.2 0-0.8 10 ^3/uL Basophils # (Auto) 0.1 0-0.2 10 ^3/uL Nucleated Red Blood Cells 0.0 % Sodium Level 140 136-145 mmol/L Potassium Level 3.5 3.5-5.1 mmol/L Chloride Level 109 H 98-107 mmol/L Carbon Dioxide Level 22 20-31 mmol/L Anion Gap 9 5-15 Blood Urea Nitrogen 14 9-23 mg/dL Creatinine 0.82 0.550-1.02 mg/dL Glomerular Filtration Rate Calc 73 >90 mL/min BUN/Creatinine Ratio 17.1 10.0-20.0 Serum Glucose 135 H 74-106 mg/dL Hemoglobin A1c 10.7 H <5.7 % A1C Calcium Level 9.4 8.7-10.4 mg/dL Phosphorus Level 3.0 2.4-5.1 mg/dL Magnesium Level 1.6 1.6-2.6 mg/dL Total Bilirubin 0.5 0.2-1.0 mg/dL Aspartate Amino Transferase (AST) 12 L 13-40 U/L Alanine Aminotransferase (ALT) 10 7-40 U/L Alkaline Phosphatase 94 46-116 U/L Total Protein 6.3 5.7-8.2 g/dL Albumin 3.8 3.2-4.8 g/dL Triglycerides Level 175 H < 150 mg/dL Cholesterol Level 202 H < 200 mg/dL LDL Cholesterol 138 H < 100 mg/dL HDL Cholesterol 42 40-59 mg/dL Troponin I High Sensitivity 5 </=34 ng/L Urine Color Yellow Yellow Urine Clarity Turbid H Clear Urine pH 5.0 5.0-9.0 Urine Specific [place] 1.020 1.001-1.035 Urine Protein 1+ H Negative Urine Ketones Negative Negative Urine Blood 1+ H Negative /uL Urine Nitrite Negative Negative Urine Bilirubin Negative Negative Urine Urobilinogen Normal Negative mg/dL Urine Leukocyte Esterase Trace Negative /uL Urine RBC 9 0 - 4 /hpf Urine Microscopic WBC 40 H 0-5 /HPF Urine Squamous Epithelial Cells Few <5 /hpf Urine Bacteria Mod H None Seen /hpf Urine Hyaline Casts Few 0 - 2 /lpf Urine Mucus Few None Seen Urine Glucose 4+ H Normal mg/dL Thyroid Stimulating Hormone (TSH) 5.93 H 0.55-4.78 uIU/mL Assessment Hypertensive urgency Sinus bradycardia, now normal sinus rhythm Dyslipidemia Type 2 diabetes mellitus, uncontrolled (Hgb A1c 10.7%) Thyroid disease Obesity Plan/Recommendation We will continue with the following plan/recommendations (): * Transthoracic echocardiogram reveals LVEF >70% * Aggressive blood pressure control * Add Nifedipine; Up-titrate as tolerated * STAT head CT: Negative * Renal ultrasound * Lipid-lowering agent * Cardiac surveillance Patient seen and examined at bedside with . Thank you for allowing us to care for this patient. Please call with any questions or concerns. Critical care time spent: 40 minutes This medical document was created using an electronic medical record system with voice recognition software and computerized dictation system. Although this document has been carefully reviewed, there might still be some phonetic and typographical errors. Occasional wrong-word or ``sound-alike substitutions may have occurred due to the inherent limitations of voice recognition software. These areas are purely typographical due to imperfections of the software programs and do not reflect any compromise in the patient's medical care. Please read the chart carefully and recognize, using context, where these substitutions have occurred. Plan discussed with: Patient, Spouse NYHA Physical activity limitations: NA Date of Service: Apr 19, 2024 Billing Provider: FER HERRING Cardiology Common Codes: 08003-[id number] INP/OBS CARE (High) Cardiology Consultation Codes: [id number] CONSULT <45MIN FER HERRING Apr 19, 2024 13:42
--- NOTE | 2024-04-19 13:58 | DVHSR ---
APPROVED REPORT EXAM: LIMITED Two-dimensional and M-mode echocardiogram with Doppler and color Doppler. Blood Pressure: 174/58 mmHg INDICATION Chest Pain Bradycardia RISK FACTORS Height: 4' 11", Weight: 151 DIMENSIONS LVDd4.0 (3.8-5.7cm)LA (2D)3.6 (1.9-4.0cm)Aortic Root2.4 (2.0-3.7cm) LVDs2.7 (2.5-4.0cm)LA (MM) (1.9-4.0cm)Aortic Cusp Exc1.5 (1.5-2.0cm) EF (%) 60.0 (55-70%)Rt. Atrium3.5 (1.9-4.0cm)Asc. Aorta cm IVSd0.9 (0.7-1.1cm)RV (D) (1.8-2.4cm) PWd1.0 (0.7-1.1cm) Mitral Valve MitralMitral Stenosis E wave1.10m/sMV Mean GR.mmHg A wave1.30m/sMV Peak GR.mmHg E/A ratio0.82D MVAcm2 Aortic Valve Aortic ValveAortic Stenosis V11.10m/Nataliia Mean GR.6mmHg V21.70m/Nataliia Peak GR.13mmHg LVOT Diameter2.1 (1.8-2.4cm)Doppler AVA2.24cm2 Pulmonic Valve V20.90m/s Tricuspid Valve TR Velocity2.10m/s [id number] LEFT VENTRICLE The left ventricle is normal size. There is normal left ventricular wall thickness. The left ventricle is hyperdynamic, LVEF is >70%. Mild diastolic dysfunction. Normal wall motion. RIGHT VENTRICLE The right ventricle visually appears size. The right ventricular systolic function visually appears normal. ATRIA The left atrial size is normal. The right atrium size is normal. MITRAL VALVE The mitral valve is grossly normal. Mitral regurgitation is trace. PULMONIC VALVE The pulmonic valve is not well visualized. There is trace pulmonic valvular regurgitation. TRICUSPID VALVE The tricuspid valve is grossly normal. No tricuspid regurgitation. AORTIC VALVE The aortic valve is trileaflet. There is trace aortic regurgitation. GREAT VESSELS The aortic root is normal size. PERICARDIAL EFFUSION No evidence of pericardial effusion. Other Information Quality : Technically LimitedRhythm : Technically limited study due to body habitus. Conclusion The left ventricle is normal size. There is normal left ventricular wall thickness. The left ventricl e is hyperdynamic, LVEF is >70%. Mild diastolic dysfunction. Normal wall motion. The right ventricular systolic function visually appears normal. The left and right atrial size is normal. No significant valvular abnormalities. No evidence of pericardial effusion.
[2024-04-19] MEDS ORDERED: DEXTROSE (50%) 50ML SYRG IV PRN (15:15)
[2024-04-19] MEDS: ACCU-CHEK COMFORT CURVE STRIP VI SCH (18:05)
[2024-04-19] MEDS: InsuLIN REG 1unit/0.01ml Soln (100units/ml) SC SCH (18:05)
[2024-04-19] MEDS: CALCIUM CARB 500 MG CHEW TAB PO SCH (21:40)
[2024-04-19] MEDS: hydrALAZINE HCL 25 MG TAB PO SCH (21:41)
[2024-04-19] MEDS: ATORVASTATIN 20 MG TAB PO SCH (21:45)
[2024-04-20 01:00] VITALS: BP 148/46; PULSE 64; RESP 17; TEMP 98.6; O2SAT 94
[2024-04-20 05:00] VITALS: BP 149/48; PULSE 66; RESP 17; TEMP 98.3; O2SAT 98
[2024-04-20 08:15] VITALS: PULSE 66
[2024-04-20] MEDS: MAGNESIUM SULFATE 1GM/100ML 100 ML IV ONE (08:27)
[2024-04-20 09:00] VITALS: BP 148/42; PULSE 69; RESP 16; TEMP 98.1; O2SAT 95
[2024-04-20] MEDS ORDERED: NIFEdipine ER 30 MG TAB PO SCH ×2 (10:00)
--- NOTE | 2024-04-20 10:02 | DVH ---
CT ABDOMEN AND PELVIS WITHOUT CONTRAST CLINICAL HISTORY: Bladder lift with mesh, recurrent utis, abdominal pain TECHNIQUE: Multiple contiguous axial images of the abdomen and pelvis without intravenous contrast. The images were reformatted degenerate coronal and sagittal reconstructions. All CT scans at this medical facility are performed using dose modulation techniques as appropriate t o a performed exam including the following:Automated exposure control was utilized; adjustment of the MA and/or KV according to patient size; and use of iterative reconstruction technique. Radiation Dose Information: CT Dose: CTDI volume is 15.47 mGy. Dose-length product is 807.5 mGy*cm Comparison: None FINDINGS: Evaluation of the abdomen and pelvis is limited without intravenous contrast. The gallbladder is surgically absent. The liver demonstrates decreased attenuation likely related to fatty infiltration. The pancreas, kidneys, adrenal glands, and spleen appear within normal limit s. There are multiple surgical clips in the retroperitoneum and along the pelvic sidewalls. There is no gross evidence of abdominal lymphadenopathy. There is no free fluid or free air. The stomach grossly appears unremarkable. The small and large bowel loops demonstrate normal caliber . The abdominal aorta and IVC appear within normal limits. There are postsurgical changes in the pelvis. The uterus is surgically absent. The bladder appears u nremarkable for the degree of distention. There is some fat stranding and soft tissue thickening in t he posterior cul-de-sac which May relate to postsurgical/posttreatment changes.. There is no gross e vidence of a pelvic mass. There is no significant free fluid collection. There are very small amount of pleural fluid and pleural-parenchymal scarring in the lung bases. There is no acute osseous abnormality. There are advanced degenerative changes in the hip joints. The re are degenerative changes in the lumbar spine. IMPRESSION: 1. There is no acute process in the abdomen and pelvis. 2. There are postsurgical changes in the retroperitoneum and pelvis . There is some fat stranding and soft tissue thickening in the posterior cul-de-sac which May relate to postsurgical / posttreatment changes. The uterus is surgically absent. Bladder appears within normal limits. 3. Hepatic steatosis. 4. Very small amount of pleural fluid and pleural-parenchymal scarring in the lung bases HS:Y
--- NOTE | 2024-04-20 10:08 | DVH ---
ULTRASOUND RENAL CLINICAL INDICATION: Renal artery stenosis TECHNIQUE: Real-time sonographic, duplex, and color Doppler images of the kidneys were obtained. FINDINGS: The right kidney measures 10 cm and is normal in size. The right renal echogenicity, contour and nancy ical thickness are within normal limits. no hydronephrosis, large masses or perinephric fluid is seen . The left kidney measures 11 cm and is normal in size. The left renal echogenicity, contour, and nancy ical thickness are within normal limits.no hydronephrosis, large masses or perinephric fluid is seen . Resistive indices within normal limits limits. IMPRESSION: Normal examination. [<reference, normal RI <.7>]
[2024-04-20] MEDS: PANTOPRAZOLE 40 MG/10 ML VIAL INJ IV SCH (10:34)
[2024-04-20] MEDS: LOSARTAN POTASSIUM 50 MG TAB PO SCH (10:35)
[2024-04-20] MEDS: NIFEdipine ER 30 MG TAB PO SCH (10:36)
--- NOTE | 2024-04-20 10:56 | ECG ---
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
[2024-04-20 12:07] LABS: Basophils # (auto) 0 10 ^3/uL (0-0.2); Basophils % (auto) 0.6 % (0.0-2.0); Eosinophils # (auto) 0.1 10 ^3/uL (0-0.8); Hemoglobin 13.2 g/dL (12.2-16.2); Lymphocytes # (auto) 1.8 10 ^3/uL (0.4-5.4); Lymphocytes % (auto) 22.9 % (10.0-50.0); Mean Corpuscular Hemoglobin 29.9 pg (28.0-32.0); Mean Corpuscular Hgb Conc. 33.8 g/dL (32.0-36.0); Mean Corpuscular Volume 88.4 fL (80.0-100.0); Monocytes # (auto) 0.5 10 ^3/uL (0-1.3); Monocytes % (auto) 6.8 % (0.0-12.0); Neutrophils # (auto) 5.3 10 ^3/uL (1.6-8.6); Neutrophils % (auto) 68.7 % (37.0-80.0); Platelet Count (auto) 176 10^3/uL (140-450); Red Blood Cells 4.41 10^6/uL (4.0-5.20); Red Cell Distribution Width 13.2 % (11.8-14.3); White Blood Cell 7.8 10^3/uL (4.4-10.8)
[2024-04-20 12:21] LABS: Alanine Aminotransferase 13 U/L (7-40); Albumin 3.7 g/dL (3.2-4.8); Alkaline Phosphatase 95 U/L (46-116); Anion Gap 10 (5-15); Aspartate Aminotransferase 16 U/L (13-40); BUN/Creatinine Ratio 14.6 (10.0-20.0); Blood Urea Nitrogen 14 mg/dL (9-23)
[2024-04-20 12:22] LABS: Total Protein 6.4 g/dL (5.7-8.2)
[2024-04-20 12:28] LABS: Bilirubin, Total 0.6 mg/dL (0.2-1.0)
[2024-04-20 12:43] LABS: Calcium 9.6 mg/dL (8.7-10.4); Carbon Dioxide 21 mmol/L (20-31); Chloride 107 mmol/L (98-107); Glucose 223 mg/dL (74-106); Potassium 3.5 mmol/L (3.5-5.1); Sodium 138 mmol/L (136-145)
[2024-04-20 12:48] VITALS: BP 150/58; PULSE 66; RESP 15; TEMP 97.9; O2SAT 95
--- NOTE | 2024-04-20 13:03 | ECG ---
[facility] Test Date: 2024-04-18 Test Time: 17:12:08 Pat Name: BRAEDEN MARIA Department: ER Room: 0293T B Gender: F [employer]: SHADIA : 1945 Requested By: STEFAN PALOMARES Order Number: [id number] Reading MD: Peterson Frias Measurements Intervals [place] Rate: 34 P: 95 MD: 199 QRS: 65 QRSD: 103 T: 57 QT: 515 QTc: 388 Interpretive Statements Sinus bradycardia Low voltage, precordial leads Electronically Signed On 04-20-2024 21:09:12 PST by Peterson Frias Please click the below link to view image of tracing.
[2024-04-20] MEDS ORDERED: LEVO-177 PO (14:24)
[2024-04-20] MEDS ORDERED: CEFD300C2 PO (14:24)
[2024-04-20] MEDS ORDERED: NIFE1TAB31 PO (14:24)
[2024-04-20] MEDS ORDERED: LOSA-535 PO (14:24)
[2024-04-20] MEDS ORDERED: INSU1INJ15 SC (14:53)
--- NOTE | 2024-04-20 15:03 | DVHDS2 ---
Discharge Summary Date of Admission Apr 18, 2024 at 20:32 Date of Discharge: Apr 20, 2024 Admitting Diagnosis Hypertensive crisis Labs/Diagnostic Data: Laboratory Results Test 04/20/24 11:20 04/19/24 20:50 04/19/24 06:46 04/18/24 20:28 White Blood Count 7.8 10^3/uL (4.4-10.8) Red Blood Count 4.41 10^6/uL (4.0-5.20) Hemoglobin 13.2 g/dL (12.2-16.2) Hematocrit 39.0 % (36.0-46.0) Mean Corpuscular Volume 88.4 fL (80.0-100.0) Mean Corpuscular Hemoglobin 29.9 pg (28.0-32.0) Mean Corpuscular Hemoglobin Concent 33.8 g/dL (32.0-36.0) Red Cell Distribution Width 13.2 % (11.8-14.3) Platelet Count 176 10^3/uL (140-450) Mean Platelet Volume 10.3 fL (6.9-10.8) Neutrophils (%) (Auto) 68.7 % (37.0-80.0) Lymphocytes (%) (Auto) 22.9 % (10.0-50.0) Monocytes (%) (Auto) 6.8 % (0.0-12.0) Eosinophils (%) (Auto) 1.0 % (0.0-7.0) Basophils (%) (Auto) 0.6 % (0.0-2.0) Neutrophils # (Auto) 5.3 10 ^3/uL (1.6-8.6) Lymphocytes # (Auto) 1.8 10 ^3/uL (0.4-5.4) Monocytes # (Auto) 0.5 10 ^3/uL (0-1.3) Eosinophils # (Auto) 0.1 10 ^3/uL (0-0.8) Basophils # (Auto) 0 10 ^3/uL (0-0.2) Nucleated Red Blood Cells 0.0 % Sodium Level 138 mmol/L (136-145) Potassium Level 3.5 mmol/L (3.5-5.1) Chloride Level 107 mmol/L (98-107) Carbon Dioxide Level 21 mmol/L (20-31) Anion Gap 10 (5-15) Blood Urea Nitrogen 14 mg/dL (9-23) Creatinine 0.96 mg/dL (0.550-1.02) Glomerular Filtration Rate Calc 60 mL/min (>90) BUN/Creatinine Ratio 14.6 (10.0-20.0) Serum Glucose 223 mg/dL (74-106) Calcium Level 9.6 mg/dL (8.7-10.4) Total Bilirubin 0.6 mg/dL (0.2-1.0) Aspartate Amino Transferase (AST) 16 U/L (13-40) Alanine Aminotransferase (ALT) 13 U/L (7-40) Alkaline Phosphatase 95 U/L (46-116) Total Protein 6.4 g/dL (5.7-8.2) Albumin 3.7 g/dL (3.2-4.8) POC Glucose 165 mg/dl (70-106) Hemoglobin A1c 10.7 % A1C (<5.7) Phosphorus Level 3.0 mg/dL (2.4-5.1) Magnesium Level 1.6 mg/dL (1.6-2.6) Triglycerides Level 175 mg/dL (< 150) Cholesterol Level 202 mg/dL (< 200) LDL Cholesterol 138 mg/dL (< 100) HDL Cholesterol 42 mg/dL (40-59) Troponin I High Sensitivity 5 ng/L (</=34) Test 04/18/24 15:24 Urine Color Yellow (Yellow) Urine Clarity Turbid (Clear) Urine pH 5.0 (5.0-9.0) Urine Specific [place] 1.020 (1.001-1.035) Urine Protein 1+ (Negative) Urine Ketones Negative (Negative) Urine Blood 1+ /uL (Negative) Urine Nitrite Negative (Negative) Urine Bilirubin Negative (Negative) Urine Urobilinogen Normal mg/dL (Negative) Urine Leukocyte Esterase Trace /uL (Negative) Urine RBC 9 /hpf (0 - 4) Urine Microscopic WBC 40 /HPF (0-5) Urine Squamous Epithelial Cells Few /hpf (<5) Urine Bacteria Mod /hpf (None Seen) Urine Hyaline Casts Few /lpf (0 - 2) Urine Mucus Few (None Seen) Urine Glucose 4+ mg/dL (Normal) Thyroid Stimulating Hormone (TSH) 5.93 uIU/mL (0.55-4.78) Other Laboratory Tests 04/20/24 11:20 Brief Hx & Hospital Course: History of Present Illness The patient is a 78-year-old female with past medical history of DM, depression, anxiety, thyroid disease, UTIs, and hypertension who presented to [facility] ED with complaint of elevated blood pressure. Patient reports she ran out of blood pressure medication, will need medication refills. Patient also reports chest pain every day, usually at night. Patient was seen and evaluated in the ED, laboratory data shows WBC 7.9, platelets 200, sodium 136, potassium 4.1, BUN 16, creatinine 1.09, GFR 52, glucose 292, troponin 5, TSH 5.93, blood pressure 210/71 trending down to 128/60, heart rate 46, temperature 98.2 F, O2 saturation 96% on room air. Patient was given clonidine 0.2 mg by mouth x1, given aspirin 162 mg p.o. x1, please see medication orders section in the computer. On my assessment, patient denied chest pain at this moment, no headache, no dizziness, no slurred speech, no diaphoresis, no nausea, no vomiting, no fever, no chills. Patient was admitted for further evaluation and medical management. Course of hospitalization: Patient was had CT scan of the head which negative for any acute pathology. Given the patient's multiple bladder surgeries and abdominal pain as well as recurrent UTIs, CT of the abdomen and pelvis was performed which was negative for any acute pathology. Patient was noted to have some bradycardia for which Cardiology was consulted. Patient had echocardiogram without any acute findings. Patient was heart rate has been normalized. Patient was blood pressure is also improved with both Procardia and losartan. Long discussion with the patient and family bedside reveals that the patient has been noncompliant, currently has not seen her PCP, and essentially came to the hospital after being referred by urgent care to manage the patient's home meds as well as her hypertensive issue. Patient will be discharged home with continuation of losartan 100 mg p.o. daily, as well as continuing Procardia XL 90 mg p.o. daily. For the patient was UTI she will be continued on antibiotic therapy with cefdinir 300 mg p.o. twice a day for additional seven days. She will also be given a refill on her levothyroxine. Patient was not know how much insulin she takes at home so she will be started on a regular insulin sliding scale for which the primary nurse will give the patient education. According to the patient daughter she does have an appointment at the end of this month with her new provider. Patient is stable to be discharged and instructed to follow up as soon as possible with her PCP. Physical examination General: Alert and Oriented x3. No acute distress. Well-nourished. Eyes: EOMI. Anicteric. HENT: Moist mucous membranes. Lungs: Clear to auscultation bilaterally. No accessory muscle use. Cardiovascular: Regular rate and rhythm. No murmur. No JVD. Abdomen: Soft, non-tender and non-distended. No palpable masses. Extremities: No edema. Non-tender. Skin: No rashes or lesions. Warm. Neurologic: No focal neurological deficits. CN II-XII grossly intact, but not individually tested. Psychiatric: Cooperative. Appropriate mood and affect. Total time spent with patient discussing and formulating plan of care: 35 minutes. This medical document was created using an electronic medical record system with [employer] dictation system. Although this document has been carefully reviewed, there may still be some phonetic and typographical errors. These areas are purely typographical due to imperfections of the software programs, and do not reflect any compromise in the patient's medical care. Consults/Reason for consult Cardiology: Hypertensive crisis Condition at Discharge: Fair Final Diagnosis/Problems List Hypertensive crisis Secondary Diagnosis: -hypothyroidism -dyslipidemia -morbid obesity -chronic UTIs with acute UTI -wheelchair-bound -diabetes mellitus -primary hypertension -medication noncompliance Discharge Disposition: Home Discharge Instruct/Medications Diet: Consistent carbohydrate, Cardiac 2g Na,low cholest Activity: No Restrictions, As Tolerated Follow Up/Referral: Follow up with at established PCP appointment this month Medications: Losartan 100 mg p.o. daily Nifedipine XL 90 mg p.o. daily Cefdinir 300 mg p.o. b.i.d. Continue all previous home medications 36 Discharge Statement: "Patient was advised to return to the ER or call 911 if any headaches, dizziness, shortness of breath, chest pain, abdominal pain, bleeding, fevers, or worsening of medical condition. Patient was counseled about treatment plan, medications, possible side effects, patientverbalized understanding. All questions were answered to the best of my ability. This discharge took greater then 30 minutes in planning, reviewing documentation, counseling the patient, and discussing with other team members." ASSESSMENT ASSESSMENT Assessment Hypertensive crisis Date of Service: Apr 20, 2024 Billing Provider: TOD BARTON NP Common Visit Codes: [id number] INP/OBS CARE(HIGH) TOD BARTON NP Apr 20, 2024 15:02
--- NOTE | 2024-04-20 15:15 | DVHPN2 ---
Consult Progress Note Date Seen: Apr 20, 2024 Subjective Review of Systems: CVS:Normal, RESPIRATORY:Normal, NEURO:Normal Objective vital signs Vital Sign Date Time Temp Pulse Resp B/P (MAP) Pulse Ox O2 Delivery O2 Flow Rate FiO2 04/20/24 12:48 97.9 66 15 150/58 (88) 95 97.9 04/20/24 08:15 Room Air* 0 21 Total Intake and Output 04/19/24 04/19/24 04/20/24 15:00 23:00 07:00 Intake Total 1380 ml 830 ml 650 ml Balance 1380 ml 830 ml 650 ml medications Current Medications Medications Dose Ordered Sig/Kimberly Route Start Time Stop Time Status Last Admin Dose Admin Aspirin 81 mg DAILY PO 04/19/24 10:00 04/20/24 10:35 81 MG Levothyroxine Sodium 88 mcg QAM@0600 PO 04/19/24 06:00 04/20/24 05:41 88 MCG Acetaminophen/ Hydrocodone Bitart 1 tab Q4HP PRN PO 04/18/24 19:45 04/19/24 13:37 1 TAB Ondansetron HCl 4 mg Q4HP PRN IV 04/18/24 19:45 Docusate Sodium 100 mg BIDPRN PRN PO 04/18/24 19:45 Acetaminophen 650 mg Q6HP PRN PO 04/18/24 19:45 Nitroglycerin 0.4 mg Q5MINP PRN SL 04/18/24 20:45 Morphine Sulfate 2 mg Q30M PRN IV 04/18/24 20:45 Losartan Potassium 100 mg DAILY PO 04/20/24 10:00 04/20/24 10:35 100 MG Pantoprazole Sodium 40 mg DAILY IV 04/20/24 10:00 04/20/24 10:34 40 MG Calcium Carbonate 500 mg BID PO 04/19/24 22:00 04/20/24 10:35 500 MG Ceftriaxone Sodium 50 ml @ 100 mls/hr DAILY@09 IV 04/19/24 11:00 04/20/24 10:34 100 MLS/HR Diagnostic Test (Pha) 1 strip ACHS 04/19/24 17:00 04/20/24 12:01 1 STRIP Insulin Human Regular ACHS SC 04/19/24 17:00 04/20/24 12:01 4 UNITS Dextrose 50 ml UD PRN IV 04/19/24 15:15 Atorvastatin Calcium 40 mg HS PO 04/19/24 22:00 Hydralazine HCl 50 mg Q8HR PO 04/19/24 22:00 04/20/24 05:41 50 MG Nifedipine 90 mg DAILY PO 04/20/24 10:00 04/20/24 10:36 90 MG Examination: LUNGS:Normal, CVS:Normal, NEURO:Normal laboratory and microbiology Laboratory Tests 04/20/24 11:20 Test 04/20/24 11:20 Range/Units Serum Glucose 223 H 74-106 mg/dL Problem List/Assessment/Plan Problem List/Assessment/Plan Hypertensive urgency Transient sinus bradycardia, now NSR Type 2 diabetes mellitus, uncontrolled (Hgb A1c 10.7%) Thyroid disease Dyslipidemia Obesity Plan/Recommendation (Dr. Frias) * Transthoracic echocardiogram reveals LVEF >70% * Aggressive blood pressure control * Nifedipine and ARB. Hydralazine PRN for SBP >150 mmHg * Renal artery ultrasound, negative * Lipid-lowering agent * Risk factor modifications, counseled * Initiate BP log at home and take to next PCP appointment * Tight glycemmic control, diet, weight loss We will sign off at this time. Kindly call if in need to re-consult. Thank you for allowing us to care for this patient. This medical document was created using an electronic medical record system with voice recognition software and computerized dictation system. Although this document has been carefully reviewed, there might still be some phonetic and typographical errors. Occasional wrong-word or ``sound-alike substitutions may have occurred due to the inherent limitations of voice recognition software. These areas are purely typographical due to imperfections of the software programs and do not reflect any compromise in the patient's medical care. Please read the chart carefully and recognize, using context, where these substitutions have occurred. Plan discussed with: Patient, Daughter, Other Date of Service: Apr 20, 2024 Billing Provider: ELIJAH DO Cardiology Common Codes: [id number] INP/OBS CARE(Mod) ELIJAH DO Apr 20, 2024 15:15
[2024-04-20 15:47] VITALS: BP 148/42
--- NOTE | 2024-04-23 07:12 | ECG ---
[facility] Test Date: 2024-04-18 Test Time: 17:24:39 Pat Name: BRAEDEN MARIA Department: ER Room: 0293T B Gender: F [employer]ician: SHADIA : 1945 Requested By: STEFAN PALOMARES Order Number: [id number] Reading MD: Peterson Frias Measurements Intervals [place] Rate: 43 P: 34 [place]: 175 QRS: 38 QRSD: 99 T: 24 QT: 499 QTc: 422 Interpretive Statements Sinus bradycardia Low voltage, precordial leads Electronically Signed On 04-23-2024 9:35:13 PST by Peterson Frias Please click the below link to view image of tracing.
== END 2024-04-20 16:15 | disposition home or self-care (01) | DRG 305 ==
LOC: ER 13:38 → TELE 20:32 → TELE-WESTW 23:52
PROVIDERS: ADMIT Nurse Practitioner Family; ATTEND Nurse Practitioner Acute Care
DX: I16.0 Hypertensive urgency (principal); N39.0 Urinary tract infection, site not specified; E03.9 Hypothyroidism, unspecified; E11.65 Type 2 diabetes mellitus with hyperglycemia; E78.5 Hyperlipidemia, unspecified; E66.01 Morbid (severe) obesity due to excess calories; F32.A Depression, unspecified; F41.9 Anxiety disorder, unspecified; K21.9 Gastro-esophageal reflux disease without esophagitis; Z68.33 Body mass index [BMI] 33.0-33.9, adult; Z88.1 Allergy status to other antibiotic agents; Z83.3 Family history of diabetes mellitus; Z91.199 Patient's noncompliance with other medical treatment and regimen due to unspecified reason; Z99.3 Dependence on wheelchair; Z79.899 Other long term (current) drug therapy; Z79.4 Long term (current) use of insulin
CPT/HCPCS: 36415; 70450; 71045; 74176; 80048; 80053; 80061; 81001; 82962; 83036; 83735; 84100; 84443; 84484; 85025; 93005; 93306; 93975; 99291; G0378; J1815; J2470

== ENCOUNTER → 2024-07-08 | Outpatient (CLI) | payer OTHER ==
[~2024-07-08] MED LIST changes: +CEFD300C2 PO; +CITA10TA8 PO; +INSU1INJ15 SC; +LEVO-177 PO; +LOSA-535 PO; +MECL12.586 PO; +NIFE1TAB31 PO; -NITR-87 PO; -PHENAZOPYRID PO; -SYNTHROID
[2024-07-08 07:25] LABS: Basophils # (auto) 0 10 ^3/uL (0-0.2); Basophils % (auto) 0.9 % (0.0-2.0); Eosinophils # (auto) 0.2 10 ^3/uL (0-0.8); Eosinophils % (auto) 4.2 % (0.0-7.0); Hematocrit 36.9 % (36.0-46.0); Hemoglobin 12.6 g/dL (12.2-16.2); Lymphocytes # (auto) 1.7 10 ^3/uL (0.4-5.4); Lymphocytes % (auto) 32.6 % (10.0-50.0); Mean Corpuscular Hemoglobin 29.4 pg (28.0-32.0); Mean Corpuscular Hgb Conc. 34.2 g/dL (32.0-36.0); Mean Corpuscular Volume 86.1 fL (80.0-100.0); Monocytes # (auto) 0.5 10 ^3/uL (0-1.3); Monocytes % (auto) 9.2 % (0.0-12.0); Neutrophils # (auto) 2.8 10 ^3/uL (1.6-8.6); Neutrophils % (auto) 53.1 % (37.0-80.0); Platelet Count (auto) 180 10^3/uL (140-450); Red Blood Cells 4.28 10^6/uL (4.0-5.20); Red Cell Distribution Width 14.2 % (11.8-14.3); White Blood Cell 5.3 10^3/uL (4.4-10.8)
[2024-07-08 07:54] LABS: Alanine Aminotransferase 13 U/L (7-40); Albumin 4.2 g/dL (3.2-4.8); Alkaline Phosphatase 120 U/L (46-116); Anion Gap 8 (5-15); Aspartate Aminotransferase 13 U/L (13-40); BUN/Creatinine Ratio 20.7 (10.0-20.0); Bilirubin, Total 0.6 mg/dL (0.2-1.0); Blood Urea Nitrogen 19 mg/dL (9-23); Calcium 9.8 mg/dL (8.7-10.4); Carbon Dioxide 27 mmol/L (20-31); Chloride 104 mmol/L (98-107); Cholesterol 233 mg/dL (< 200); Glucose 149 mg/dL (74-106); HDL Cholesterol 39 mg/dL (40-59); LDL Cholesterol 128 mg/dL (< 100); Potassium 4.3 mmol/L (3.5-5.1); Sodium 139 mmol/L (136-145); Total Protein 7.1 g/dL (5.7-8.2); Triglycerides 278 mg/dL (< 150)
[2024-07-08 07:57] LABS: Creatinine, Urine 40.85 mg/dL (30.0-125.0)
== END | disposition home or self-care (01) ==
LOC: LAB 07:10
PROVIDERS: ATTEND Internal Medicine
DX: I10 Essential (primary) hypertension (principal); E11.9 Type 2 diabetes mellitus without complications; E03.9 Hypothyroidism, unspecified
CPT/HCPCS: 36415; 80053; 80061; 82043; 82570; 83036; 85025